=== PATIENT | female | born 1995 | race Caucasian/White ===

== ENCOUNTER 2016-10-27 07:51 | Emergency (ER) | payer OTHER ==
[~2016-10-27 07:51] MED LIST: PRED20TA PO
[2016-10-27 08:24] VITALS: BP 126/75
--- NOTE | 2016-10-27 09:01 | ED.ADGEN ---
Past History Past Medical History: No Pertinent History Past Surgical History: No Surgical History Alcohol Use: None Drug Use: None Adult General Chief Complaint Chief Complaint Facial rash HPI HPI Patient is a 21 year old female who presents with facial rash. Patient states she was on the son yesterday and applied a new sunscreen she had not used before. After this she developed painful rash on her face. She attempted Benadryl without relief. She denies that it's pruritic. She states she's had similar breakouts in the past with using different skin products. She's never been seen by a key account manager or had any skin testing done. She denies any fevers , no known sick contacts, no other illness reported. She reports "I have very sensitive skin" Review of Systems Review of Systems Constitutional: Denies fever or chills [] Eyes: Denies change in visual acuity, redness, or eye pain [] HENT: Denies nasal congestion or sore throat [] Respiratory: Denies cough or shortness of breath [] Cardiovascular: Denies chest pain GI: Denies abdominal pain, nausea, vomiting, bloody stools or diarrhea [] : Denies dysuria or hematuria [] Musculoskeletal: Denies back pain or joint pain [] Integument: Per history of present illness Neurologic: Denies headache, focal weakness or sensory changes [] Allergies Allergies Allergies Coded Allergies Type Severity Reaction Last Updated Verified No Known Drug Allergies 09/04/16 No Physical Exam Physical Exam Constitutional: Well developed, well nourished, no acute distress, non-toxic appearance. [] HENT: Normocephalic, atraumatic, bilateral external ears normal, oropharynx moist, no oral exudates, nose normal. [] Eyes: PERRLA,conjunctiva normal, no discharge. [] Neck: Normal range of motion Cardiovascular:Heart rate regular Lungs & Thorax: No respiratory distress Skin: On patient's face she has macular papular singular lesions, compliant and singular lesions, circular lesions, skin is intact Neurologic: Alert and oriented X 3, normal motor function, normal sensory function, no focal deficits noted. [] EKG EKG [] Radiology/Procedures Radiology/Procedures [] Course & Med Decision Making Course & Med Decision Making Pertinent Labs and Imaging studies reviewed. (See chart for details) [] Patient has a contact dermatitis versus sun reaction. I counseled patient on attempting 1% hydrocortisone cream and Benadryl, avoiding new lotions or soaps. Follow-up with key account manager, given Dr. Yoo's number. Final Impression Final Impression contact dermatitis vs sun reaction[] Problems: Dragon Disclaimer Dragon Disclaimer This electronic medical record was generated, in whole or in part, using a voice recognition dictation system. BENNIE SAHU MD Oct 27, 2016 09:01
== END 2016-10-27 08:24 | disposition home or self-care (01) ==
LOC: ER 07:54
DX: R21 Rash and other nonspecific skin eruption (principal)
CPT/HCPCS: 99282

== ENCOUNTER 2017-01-05 17:35 | Emergency (ER) | payer OTHER ==
[2017-01-05] MEDS ORDERED: IV NORMAL SALINE 1,000ML 1,000 ML IV SCH (18:06)
[2017-01-05] MEDS ORDERED: fentaNYL PF 100 MCG/2 ML VIAL IV PRN (18:15)
[2017-01-05] MEDS ORDERED: KETOROLAC 30 MG/ML VIAL. IV ONE (18:15)
[2017-01-05] MEDS ORDERED: ONDANSETRON PF 4 MG/2 ML VIAL. IV ONE (18:30)
--- NOTE | 2017-01-05 18:51 | ED.ADGEN ---
Past History Past Medical History: No Pertinent History Past Surgical History: Other Alcohol Use: None Drug Use: None Adult General HPI HPI Patient is a 21-year-old woman, with no significant past no history, who presents to the emergency department with a complaint of dysuria, frequency and urgency that began yesterday. Patient states she initially began experiencing pain with urination, and some burning, states that she is experiencing cramping the suprapubic region. Denies fevers or chills, some nausea, no vomiting, no swelling extremities, rashes, no weakness, numbness, tingling. States she is ending her back bladder incompletely. Denies any injuries, denies any discharge or drainage from the vagina, any concerns for STI exposures. No dyspareunia. Patient states that she had a UTI but a year ago and symptoms were similar at that time. Takes oral control pills, no other medications. Review of Systems Review of Systems Constitutional: Denies fever or chills [] Eyes: Denies change in visual acuity, redness, or eye pain [] HENT: Denies nasal congestion or sore throat [] Respiratory: Denies cough or shortness of breath [] Cardiovascular: No additional information not addressed in HPI [] GI: Denies abdominal pain, nausea, vomiting, bloody stools or diarrhea [] : Dysuria hematuria frequency urgency today. Musculoskeletal: I'll cramping low back pain, no joint pain. Integument: Denies rash or skin lesions [] Neurologic: Denies headache, focal weakness or sensory changes [] Endocrine: Denies polyuria or polydipsia [] Current Medications Current Medications Current Medications Medications (Trade) Dose Ordered Sig/Steven Start Time Stop Time Status Last Admin Dose Admin Cephalexin HCl (Keflex) 500 mg 1X ONCE 01/05/17 19:30 01/05/17 19:37 DC 01/05/17 19:30 500 MG Fentanyl Citrate (Fentanyl 2ml Vial) 50 mcg PRN Q15MIN PRN 01/05/17 18:15 01/05/17 18:35 DC Ketorolac Tromethamine (Toradol) 10 mg 1X ONCE 01/05/17 18:15 01/05/17 18:35 DC Naproxen (Naprosyn) 500 mg 1X ONCE 01/05/17 19:30 01/05/17 19:37 DC 01/05/17 19:30 500 MG Ondansetron HCl (Zofran) 4 mg 1X ONCE 01/05/17 18:30 01/05/17 18:35 DC Phenazopyridine HCl (Pyridium) 200 mg 1X ONCE 01/05/17 19:15 01/05/17 19:16 DC 01/05/17 19:13 200 MG Sodium Chloride 1,000 ml @ 1,000 mls/hr Q1H 01/05/17 18:06 01/05/17 18:35 DC Allergies Allergies Allergies Coded Allergies Type Severity Reaction Last Updated Verified No Known Drug Allergies 09/04/16 No Physical Exam Physical Exam Constitutional: Well developed, well nourished, no acute distress, non-toxic appearance. [] HENT: Normocephalic, atraumatic, bilateral external ears normal, oropharynx moist, no oral exudates, nose normal. [] Eyes: PERRLA, EOMI, conjunctiva normal, no discharge. [] Neck: Normal range of motion, no tenderness, supple, no stridor. [] Cardiovascular:Heart rate regular rhythm, no murmur, S1, S2, rubs or gallops. [] Lungs & Thorax: Bilateral breath sounds clear to auscultation, no wheezing, rhonchi, rales. No chest or crepitus or tenderness. [] Abdomen: Bowel sounds normal, soft, mild tenderness palpation in the suprapubic region, no rebound, rigidity, no guarding, no masses, no pulsatile masses. [] Skin: Warm, dry, no erythema, no rash. [] Back: No tenderness, no CVA tenderness. [] Extremities: No tenderness, no cyanosis, no clubbing, ROM intact, no edema. [] Neurologic: Alert and oriented X 3, normal motor function, normal sensory function, no focal deficits noted. [] Psychologic: Affect normal, judgement normal, mood normal. [] Current Patient Data Vital Signs Vital Signs Date Time Temp Pulse Resp B/P (MAP) Pulse Ox O2 Delivery O2 Flow Rate FiO2 01/05/17 19:31 68 16 105/80 (88) 100 Room Air 01/05/17 17:35 98.1 Lab Results Laboratory Tests Test 01/05/17 18:32 Urine Collection Type Unknown Urine Color Yellow Urine Clarity Cloudy Urine pH 7.0 Urine Specific Griffin 1.020 Urine Protein 30 mg/dl (NEG-TRACE) Urine Glucose (UA) Neg mg/dL (NEG) Urine Ketones (Stick) Neg mg/dL (NEG) Urine Blood Small (NEG) Urine Nitrite Neg (NEG) Urine Bilirubin Neg (NEG) Urine Urobilinogen Dipstick 0.2 mg/dL (0.2 mg/dL) Urine Leukocyte Esterase Small (NEG) Urine RBC 3-5 /HPF (0-2) Urine WBC >40 /HPF (0-4) Urine Squamous Epithelial Cells Mod /LPF Urine Bacteria Few /HPF (0-FEW) Urine Mucus Marked /LPF Urine Test Negative (NEG) EKG EKG Not indicated. [] Radiology/Procedures Radiology/Procedures Not indicated. [] Course & Med Decision Making Course & Med Decision Making Pertinent Labs and Imaging studies reviewed. (See chart for details) [] Patient declines indications for pelvic examination. Vital signs within normal limits, tolerating by mouth fluids without issue. She states she did take some Azo at home which helped with the burning, but still is having pain. Has not taken any antipyretics or pain medication prior to arrival in the emergency department. Examination is consistent with a urinary tract infection, no medications of pyelonephritis or other concerning findings based on examination. Urinalysis is positive for greater in 40 WBCs, some RBCs, and bacteria. Nitrate negative. Based on patient's examination, and report, we'll treat for a urinary tract infection, patient given Keflex, Pyridium, naproxen, which she tolerated without issue. We discussed concerning symptoms that prompt return to the emergency department, patient tolerated oral medications without issue in the ED. Patient states that she'll return to the ED for concerning symptoms as discussed, will follow-up with her primary care provider for test of cure in one week. Discharged home in stable condition with instructions and precautions as stated. Final Impression Final Impression [] Problems: Dragon Disclaimer Dragon Disclaimer This electronic medical record was generated, in whole or in part, using a voice recognition dictation system. Departure: Impression: Primary Impression: Urinary tract infection Disposition: HOME, SELF-CARE Condition: IMPROVED Scripts Naproxen (NAPROXEN) 250 Mg Tablet 250 MG PO PRN BID Y for BLADDER SPASM, #10 TAB Prov: FERNY STAFFORD DO 01/05/17 Phenazopyridine Hcl (PYRIDIUM) 200 Mg Tablet 200 MG PO PRN TID Y for BLADDER SPASM, #12 TAB Prov: FERNY STAFFORD DO 01/05/17 Cephalexin (KEFLEX) 500 Mg Capsule 1 CAP PO BID, #14 CAP Prov: FERNY STAFFORD DO 01/05/17 FERNY STAFFORD DO January 05, 2017 18:51
[2017-01-05 19:13] LABS: BILIRUBIN,URINE NEG (NEG); CLARITY,URINE CLOUDY; COLOR,URINE YELLOW; GLUCOSE,URINE NEG (NEG); NITRITE,URINE NEG (NEG); UROBILINOGEN,URINE 0.2 mg/dL (0.2 mg/dL)
[2017-01-05 19:14] LABS: BACTERIA,URINE FEW /HPF (0-FEW); SQUAMOUS EPITHELIAL CELL,UR MOD /LPF; WBC,URINE >40 /HPF (0-4)
[2017-01-05] MEDS ORDERED: PHENAZOPYRIDINE 200 MG TABLET. PO ONE (19:15)
[2017-01-05 19:16] LABS: U PREG PATIENT NEGATIVE (NEG)
[2017-01-05] MEDS ORDERED: NAPROXEN 500 MG TABLET PO ONE (19:30)
[2017-01-05] MEDS ORDERED: CEPHALEXIN 500 MG CAPSULE PO ONE (19:30)
[2017-01-05 19:31] VITALS: BP 105/80
[2017-01-05] MEDS ORDERED: PHEN-318 PO (19:34)
[2017-01-05] MEDS ORDERED: NAPR250T2 PO (19:34)
[2017-01-05] MEDS ORDERED: CEPH-264 PO (19:34)
== END 2017-01-05 19:33 | disposition home or self-care (01) ==
LOC: ER 17:35
DX: N39.0 Urinary tract infection, site not specified (principal); M54.5 Low back pain
CPT/HCPCS: 81001; 81025; 99284

== ENCOUNTER 2017-03-08 15:31 | Emergency (ER) | payer OTHER ==
[~2017-03-08 15:31] MED LIST changes: +CEPH-264 PO; +NAPR250T2 PO; +PHEN-318 PO
[2017-03-08] MEDS: LIDO:MAALOX 1:1 20 ML SINGLE DOSE PO ONE (16:10)
[2017-03-08 16:38] LABS: MONONUCLEOSIS PATIENT NEGATIVE (NEGATIVE)
[2017-03-08 16:40] VITALS: BP 132/80
[2017-03-08] MEDS ORDERED: SULF1TAB24 PO (16:43)
--- NOTE | 2017-03-08 16:45 | PHYS DOC ---
General Chief Complaint: SORE THROAT Stated Complaint: SORE THROAT Time Seen by MD: 15:33 Source: patient Exam Limitations: no limitations Problems: History of Present Illness Initial Comments Patient is sore throat. Patient states that for the past 3 days she worsens. Sore throat associated beer and limits her to fluid intake only today. She's had chills and sweats with some body aches. Gotu-qsn-qecyniw medications are not helping, patient is normally healthy she denies any difficulty swallowing and no shortness of breath or dyspnea on exertion. Patient has history of mono and strep in the past. Timing/Duration: other Severity: severe Location: throat Prearrival Treatment: over the counter meds Modifying Factors: worse with coughing Associated Symptoms: fever, malaise, poor solids intake, sore throat Allergies: Coded Allergies: No Known Drug Allergies (Unverified , 09/04/16) Past Medical History Medical History: no pertinent history Surgical History: noncontributory Social History Smoker: non-smoker Alcohol: none Drugs: none Constitutional: see HPI Ears: denies dizziness, denies pain Nose: denies congestion, denies epistaxis Throat: see HPI, denies neck stiffness, denies difficulty with fluids Respiratory: denies cough, denies shortness of breath Cardiovascular: denies chest pain, denies palpitations Gastrointestinal: denies nausea, denies vomiting Musculoskeletal: denies joint swelling, denies neck pain Physical Exam General Appearance: WD/WN, no apparent distress Eyes: bilateral eye normal inspection, bilateral eye PERRL, bilateral eye EOMI Nose: normal inspection Mouth/Throat: other (pharynx is beefy red with exudate airway is patent) Neck: trachea midline (tender reactive lymphadenopathy bilaterally) Cardiovascular/Respiratory: normal peripheral pulses, normal breath sounds 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 Departure Time of Disposition: 16:44 Disposition: 01 HOME, SELF-CARE Diagnosis: pharyngitis Condition: GOOD Patient Instructions: Viral and Bacterial Pharyngitis Additional Instructions: Aggressive hydration with Gatorade or water. Lief-dzf-ziyeysn Tylenol, ibuprofen, and analgesic throat sprays as needed. Prescription: Bactrim DS take with food as directed. Follow-up with your doctor in 7-10 days for recheck and throat culture results. Return to the ED with new or changing symptoms. AUSTIN PETERSON DO Mar 08, 2017 16:45
== END 2017-03-08 16:50 | disposition home or self-care (01) ==
LOC: ER 15:31
DX: J02.9 Acute pharyngitis, unspecified (principal); M79.1 Myalgia
CPT/HCPCS: 86308; 87070; 87880; 99284

== ENCOUNTER 2017-06-17 18:37 | Emergency (ER) | payer OTHER ==
[~2017-06-17] VITALS: Ht 167.6 cm; Wt 63.6 kg
[~2017-06-17 18:37] MED LIST changes: -NAPR250T2 PO; +NAPR250T6 PO; +SULF1TAB24 PO
[2017-06-17 18:49] VITALS: BP 132/84
[2017-06-17] MEDS ORDERED: 0.9 % SODIUM CHLORIDE 10 ML DISP.SYRIN. IV PRN (19:15)
[2017-06-17] MEDS ORDERED: IV NORMAL SALINE 1,000ML 500 ML IV ONE (19:30)
[2017-06-17 20:00] LABS: BASO # 0.1 x10^3/uL (0.0-0.2); BASO % 1 % (0-3); EOS # 0.2 x10^3/uL (0.0-0.7); EOS % 2 % (0-3); HEMATOCRIT 37.1 % (36.0-47.0); HEMOGLOBIN 12.7 g/dL (12.0-15.5); LYMPH # 3.9 x10^3/uL (1.0-4.8); LYMPH % 51 % (24-48); MEAN CORPUSCULAR HEMOGLOBIN 29 pg (25-35); MEAN CORPUSCULAR HGB CONC 34 g/dL (31-37); MEAN CORPUSCULAR VOLUME 84 fL (79-100); MONO # 0.6 x10^3/uL (0.0-1.1); MONO % 7 % (0-9); NEUT % 39 % (31-73); PLATELET COUNT 292 x10^3/uL (140-400); RED CELL DISTRIBUTION WIDTH 12.6 % (11.5-14.5); WHITE BLOOD COUNT 7.8 x10^3/uL (4.0-11.0)
[2017-06-17 20:05] LABS: CALCIUM 8.7 mg/dL (8.5-10.1); CREATININE 0.7 mg/dL (0.6-1.0); GFR 103.7; POTASSIUM 3.9 mmol/L (3.5-5.1)
[2017-06-17 20:10] LABS: PREG TEST PT QUAL NEGATIVE (NEG)
--- NOTE | 2017-06-17 20:40 | PHYS DOC ---
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 It all culminated today while on duty as standing position patient felt lightheaded and dizzy as she if she were going to pass out. She sat down quickly and she felt markedly better. Because the symptoms are becoming increasingly frequent she wanted to be seen here in the emergency pertinent. At this point she has no complaints or concerns other than the dizziness occurs when she stands quickly and near passing out with fatigue. She denies any fevers, chills, nausea, vomiting, diarrhea, headache, focal neurologic deficits, change in vision, change in speech, weakness in her upper or lower arms, denies any trauma to her head, she has been dressed at work. She denies any travel outside the country recent antibiotics or sick contacts. Symptoms are usually worse with going from a sitting to standing position quickly and are better with taking a recumbent position. Review of Systems Review of Systems Constitutional: Denies fever or chills she is complaining of fatigue Eyes: Denies change in visual acuity, redness, or eye pain [] HENT: Denies nasal congestion or sore throat [] Respiratory: Denies cough or shortness of breath [] Cardiovascular: No additional information not addressed in HPI [] GI: Denies abdominal pain, nausea, vomiting, bloody stools or diarrhea [] : Denies dysuria or hematuria [] Musculoskeletal: Denies back pain or joint pain [] Integument: Denies rash or skin lesions [] Neurologic: Denies headache, focal weakness or sensory changes does complain of primary dizziness when standing for prolonged period of time or going from a sitting or laying position to a standing position quickly. Endocrine: Denies polyuria or polydipsia [] All other systems were reviewed and found to be within normal limits, except as documented in this note. Current Medications Current Medications Current Medications Medications (Trade) Dose Ordered Sig/Steven Start Time Stop Time Status Last Admin Dose Admin Sodium Chloride 500 ml @ 500 mls/hr Q1H ONCE 06/17/17 19:30 06/17/17 20:29 Sodium Chloride (Normal Saline Flush) 10 ml QSHIFT PRN 06/17/17 19:15 Allergies Allergies Allergies Coded Allergies Type Severity Reaction Last Updated Verified No Known Drug Allergies 09/04/16 No Physical Exam Physical Exam Vital signs on arrival within normal limits. Constitutional: Well developed, well nourished, no acute distress, non-toxic appearance. [] HENT: Normocephalic, atraumatic, bilateral external ears normal, oropharynx moist, no oral exudates, nose normal. [] Eyes: PERRLA, EOMI, conjunctiva normal, no discharge. [] Neck: Normal range of motion, no tenderness, supple, no stridor. [] Cardiovascular:Heart rate regular rhythm, no murmur [] Lungs & Thorax: Bilateral breath sounds clear to auscultation [] Abdomen: Bowel sounds normal, soft, no tenderness, no masses, no pulsatile masses. [] Skin: Warm, dry, no erythema, no rash. [] Back: No tenderness, no CVA tenderness. [] Extremities: No tenderness, no cyanosis, no clubbing, ROM intact, no edema. [] Neurologic: Alert and oriented X 3, normal motor function, normal sensory function, no focal deficits noted. [] Psychologic: Affect normal, judgement normal, mood normal. [] Current Patient Data Vital Signs Vital Signs Date Time Temp Pulse Resp B/P (MAP) Pulse Ox O2 Delivery O2 Flow Rate FiO2 06/17/17 18:49 98.0 20 99 Room Air Lab Results Laboratory Tests Test 06/17/17 19:35 White Blood Count 7.8 x10^3/uL (4.0-11.0) Red Blood Count 4.40 x10^6/uL (3.50-5.40) Hemoglobin 12.7 g/dL (12.0-15.5) Hematocrit 37.1 % (36.0-47.0) Mean Corpuscular Volume 84 fL (79-100) Mean Corpuscular Hemoglobin 29 pg (25-35) Mean Corpuscular Hemoglobin Concent 34 g/dL (31-37) Red Cell Distribution Width 12.6 % (11.5-14.5) Platelet Count 292 x10^3/uL (140-400) Neutrophils (%) (Auto) 39 % (31-73) Lymphocytes (%) (Auto) 51 % (24-48) H Monocytes (%) (Auto) 7 % (0-9) Eosinophils (%) (Auto) 2 % (0-3) Basophils (%) (Auto) 1 % (0-3) Neutrophils # (Auto) 3.0 x10^3uL (1.8-7.7) Lymphocytes # (Auto) 3.9 x10^3/uL (1.0-4.8) Monocytes # (Auto) 0.6 x10^3/uL (0.0-1.1) Eosinophils # (Auto) 0.2 x10^3/uL (0.0-0.7) Basophils # (Auto) 0.1 x10^3/uL (0.0-0.2) Sodium Level 139 mmol/L (136-145) Potassium Level 3.9 mmol/L (3.5-5.1) Chloride Level 104 mmol/L (98-107) Carbon Dioxide Level 26 mmol/L (21-32) Anion Gap 9 (6-14) Blood Urea Nitrogen 12 mg/dL (7-20) Creatinine 0.7 mg/dL (0.6-1.0) Estimated GFR (Cockcroft-Gault) 103.7 Glucose Level 106 mg/dL (70-99) H Calcium Level 8.7 mg/dL (8.5-10.1) Serum Test, Qualitative Negative (NEG) EKG EKG [] Radiology/Procedures Radiology/Procedures [] Course & Med Decision Making Course & Med Decision Making Pertinent Labs and Imaging studies reviewed. (See chart for details) []EKG timed 7:18 PM read by me at 06/17/2017 demonstrates a ventricular rate of 58 there is a pediatric QRS normal sinus rhythm with CO interval 206 which is a first-degree AV block. As a QRS width of 88 which is normal, QTC of 402 which is normal. Patientno ST segment or T-wave changes consistent with acute ischemia , there is no evidence of Dsgws-Otdfcjegq-Dfamm or Brugada syndrome or prolonged QT. She presents with near syncope My syncope differential includes but not limited to: Neurally mediated vasovagal syncope, situational syncope, cardiac sinus syncope , orthostatic hypertension, medications, psychiatric interventions, neurologic syncope, cardiogenic syncopal B, to include organic heart disease congestive heart failure, cardiac dysrhythmia, seizure disorder, stroke or transient ischemic attack, bradycardia dysrhythmias, tachycardia dysrhythmias, PT, V. fib V. fib, cardiac abnormalities like first degree secondary third-degree AV blocks , prolonged QT, hypertrophic Justice myopathy, severe pulmonic stenosis, pulmonary arterial hypertension, atrial myxomas, aortic stenosis, valvular failure, alcohol consumption, adrenal insufficiency, drug effects from things like antidepressants, antihypertensive agents like beta blockers, vasodilators including calcium channel blockers and nitrates, autonomic insufficiency. She does not exhibit any these signs or symptoms today infectious symptom free at this time I encouraged her to follow-up with her primary care doctor to have a Holter monitor placed and continued evaluation of her thyroid. Because of her family history of hypothyroidism I will believe that she would benefit from endocrinology evaluation as well. Patient is finding well suited to follow-up with her primary care doctor. discharge: I've spoken with the patient and/or caregivers. I've explained the patient's condition, diagnosis and treatment plan based on information available to me at this time. I've answered the patient's and/or caregivers questions and addressed any concerns. The patient and/or caregivers have a good understanding the patient's diagnosis, condition and treatment plan as can be expected at this point. Vital signs have been stabilized. The patient's condition is stable for discharge from the emergency department. The patient will pursue further outpatient evaluation with her primary care provider or other designated consulting physician as outlined in the discharge instructions. Patient and/or caregivers are agreeable to this plan of care and follow-up instructions have been explained in detail. The patient and/or caregivers have received these instructions in written format and expressed understanding of these discharge instructions. The patient and her caregivers are aware that if any significant change in condition or worsening of symptoms should prompt him to immediately return to this of the closest emergency department. If an emergent department is not readily available I would encourage him to call 911. Dae Disclaimer Dragon Disclaimer This electronic medical record was generated, in whole or in part, using a voice recognition dictation system. Departure Departure: Impression: Primary Impression: Fatigue Additional Impression: Near syncope Disposition: HOME, SELF-CARE Condition: IMPROVED Referrals: ANGELA LEES DO, [facility] (PCP) Patient Instructions: Fatigue, Near-Syncope Additional Instructions: discharge: I've spoken with the patient and/or caregivers. I've explained the patient's condition, diagnosis and treatment plan based on information available to me at this time. I've answered the patient's and/or caregivers questions and addressed any concerns. The patient and/or caregivers have a good understanding the patient's diagnosis, condition and treatment plan as can be expected at this point. Vital signs have been stabilized. The patient's condition is stable for discharge from the emergency department. The patient will pursue further outpatient evaluation with her primary care provider or other designated consulting physician as outlined in the discharge instructions. Patient and/or caregivers are agreeable to this plan of care and follow-up instructions have been explained in detail. The patient and/or caregivers have received these instructions in written format and expressed understanding of these discharge instructions. The patient and her caregivers are aware that if any significant change in condition or worsening of symptoms should prompt him to immediately return to this of the closest emergency department. If an emergent department is not readily available I would encourage him to call 911. Problem Qualifiers DARRELL FERRO MD Jun 17, 2017 20:40
--- NOTE | 2017-06-17 21:05 | EKG ---
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
--- NOTE | 2017-06-18 07:52 | RAD ---
EXAM: Chest, 2 views. HISTORY: Fatigue. COMPARISON: None. FINDINGS: Frontal and lateral views of the chest are obtained. There is no infiltrate, effusion or pneumothorax. The heart is normal in size. IMPRESSION: No acute pulmonary finding.
[2017-06-18 10:13] LABS: FREE T4 0.83 ng/dL (0.76-1.46); THYROID STIM HORMONE (TSH) 2.135 uIU/mL (0.358-3.740)
== END 2017-06-17 20:43 | disposition home or self-care (01) ==
LOC: ER 18:37
DX: R55 Syncope and collapse (principal); R53.83 Other fatigue
CPT/HCPCS: 36415; 71020; 80048; 84439; 84443; 84481; 84703; 85025; 93005; 99285-25

== ENCOUNTER 2017-11-14 21:08 | Emergency (ER) | payer OTHER ==
[~2017-11-14] VITALS: Ht 167.6 cm; Wt 63.6 kg
[2017-11-14] MEDS ORDERED: FAMOTIDINE 20 MG TABLET PO ONE (21:45)
[2017-11-14] MEDS: predniSONE 20 MG TABLET PO ONE ×2 (21:45→21:54)
[2017-11-14] MEDS ORDERED: diphenhydrAMINE HCL 25 MG CAPSULE PO ONE (21:45)
--- NOTE | 2017-11-14 23:02 | ED.ADGEN ---
Past History Past Medical History: No Pertinent History Past Surgical History: No Surgical History Smoking: Non-smoker Alcohol Use: None Drug Use: None Adult General Chief Complaint Chief Complaint Chest tightness, shortness of air HPI HPI Patient is a 22-year-old female who presents with chest tightness and shortness of air after starting new antibiotics for treatment of urinary tract infection. Patient had 1 dose of Macrobid approximately 2030 minutes prior to onset of symptoms during medication or therapy taken prior to ED arrival. No oral pharyngeal swelling, no hoarseness, drooling, wheezes. Patient is not tachypneic or hypoxic. No urticaria or purities. No other symptoms or complaints. No prior allergic reactions. Denies other symptoms or complaints. Patient arrives by private vehicle. [] Review of Systems Review of Systems ROS as per HPI. No other review symptoms are negative. All other systems were reviewed and found to be within normal limits, except as documented in this note. Current Medications Current Medications Current Medications Medications (Trade) Dose Ordered Sig/Steven Start Time Stop Time Status Last Admin Dose Admin Diphenhydramine HCl (Benadryl) 25 mg 1X ONCE 11/14/17 21:45 11/14/17 21:46 DC 11/14/17 21:54 25 MG Famotidine (Pepcid) 20 mg 1X ONCE 11/14/17 21:45 11/14/17 21:46 DC 11/14/17 21:54 20 MG Prednisone (Prednisone) 60 mg 1X ONCE 11/14/17 21:45 11/14/17 21:46 DC 11/14/17 21:54 60 MG Allergies Allergies Allergies Coded Allergies Type Severity Reaction Last Updated Verified No Known Drug Allergies 09/04/16 No Physical Exam Physical Exam Constitutional: Well developed, well nourished, no acute distress, non-toxic appearance. [] HENT: Normocephalic, atraumatic, bilateral external ears normal, oropharynx moist, no oral swelling, nose normal. [] Eyes: PERRLA, EOMI, conjunctiva normal. [] Neck: Normal range of motion. [] Cardiovascular:Heart rate regular rhythm. [] Lungs & Thorax: Bilateral breath sounds clear to auscultation. [] Abdomen: Bowel sounds normal, soft, no tenderness. [] Skin: Warm, dry. [] Back: No tenderness. [] Extremities: No tenderness. [] Neurologic: Alert and oriented X 3, normal motor function, normal sensory function, no focal deficits noted. [] Psychologic: Affect, anxious. [] EKG EKG [] Radiology/Procedures Radiology/Procedures [] Course & Med Decision Making Course & Med Decision Making Pertinent Labs and Imaging studies reviewed. (See chart for details) [Pepcid and Benadryl given with symptomatic improvement. Patient reevaluated states she feels much better. Of note, patient did decline prednisone due prior side effects and concerns for palpitations and reflux disease. The patient risks and benefits of steroids in setting of acute allergic reaction. Patient voices understanding but declines prednisone prescription. I will prescribe the patient an EpiPen Rx, continue supportive care, discontinue activated and substitute Keflex. Close PCP follow-up recommended. Return precautions reviewed. Patient verbalizes understanding agreement discharge instructions prior to departure. Final Impression Final Impression [1. Allergic reaction] Problems: Dragon Disclaimer Dragon Disclaimer This electronic medical record was generated, in whole or in part, using a voice recognition dictation system. STEPHAN GUERRERO DO Nov 14, 2017 23:02
[2017-11-14 23:05] VITALS: BP 124/75
== END 2017-11-14 23:10 | disposition home or self-care (01) ==
LOC: ER 21:08
DX: T78.49XA Other allergy, initial encounter (principal); X58.XXXA Exposure to other specified factors, initial encounter
CPT/HCPCS: 99283; Q0163; J7512

== ENCOUNTER 2018-02-01 15:24 | Emergency (ER) | payer OTHER ==
[~2018-02-01] VITALS: Ht 167.6 cm; Wt 65.8 kg
[2018-02-01] MEDS ORDERED: SULF1TAB24 PO (16:16)
[2018-02-01] MEDS ORDERED: PHEN100T82 PO (16:16)
[2018-02-01] MEDS ORDERED: NAPR-683 PO (16:16)
--- NOTE | 2018-02-01 16:16 | PHYS DOC ---
Past History Past Medical History: No Pertinent History, UTI Past Surgical History: No Surgical History Smoking: Non-smoker Alcohol Use: None Drug Use: None Adult General Chief Complaint Chief Complaint: URINARY FREQUENCY HPI HPI 22-year-old female patient complaining of urinary frequency and dysuria for the last couple of hours and nausea since yesterday without fever and chills, vomiting, diarrhea and constipation, vaginal bleeding or discharge. Patient states she one year ago and since then had several episodes of UTI and usually responded well to Bactrim. Review of Systems Review of Systems Constitutional: Denies fever or chills [] Eyes: Denies change in visual acuity, redness, or eye pain [] HENT: Denies nasal congestion or sore throat [] Respiratory: Denies cough or shortness of breath [] Cardiovascular: No additional information not addressed in HPI [] GI: Denies abdominal pain, nausea, vomiting, bloody stools or diarrhea [] : Reports dysuria and frequency Musculoskeletal: Denies back pain or joint pain [] Integument: Denies rash or skin lesions [] Neurologic: Denies headache, focal weakness or sensory changes [] Endocrine: Denies polyuria or polydipsia [] All other systems were reviewed and found to be within normal limits, except as documented in this note. Allergies Allergies Allergies Coded Allergies Type Severity Reaction Last Updated Verified nitrofurantoin Allergy Mild 11/15/17 Yes Uncoded Allergies Type Severity Reaction Last Updated Verified SUN SCREEN Allergy Unknown 11/15/17 Physical Exam Physical Exam Constitutional: Well developed, well nourished, mild distress, non-toxic appearance. [] HENT: Normocephalic, atraumatic Eyes: PERRLA, EOMI, conjunctiva normal, no discharge. [] Neck: Normal range of motion, no tenderness, supple, no stridor. [] Cardiovascular:Heart rate regular rhythm, no murmur [] Lungs & Thorax: Bilateral breath sounds clear to auscultation [] Abdomen: Bowel sounds normal, soft, no tenderness, no masses, no pulsatile masses. [] Skin: Warm, dry, no erythema, no rash. [] Back: No tenderness, no CVA tenderness. [] Extremities: No tenderness, no cyanosis, no clubbing, ROM intact, no edema. [] Neurologic: Alert and oriented X 3, normal motor function, normal sensory function, no focal deficits noted. [] Psychologic: Affect normal, judgement normal, mood normal. [] Current Patient Data Vital Signs Vital Signs Date Time Temp Pulse Resp B/P (MAP) Pulse Ox O2 Delivery O2 Flow Rate FiO2 02/01/18 15:25 98.8 73 20 99 Room Air Lab Results Laboratory Tests Test 02/01/18 15:04 POC Urine HCG, Qualitative hcg negative (Negative) EKG EKG [] Radiology/Procedures Radiology/Procedures [] Course & Med Decision Making Course & Med Decision Making Pertinent Labs reviewed. (See chart for details) Evaluation of patient in ER showed 22-year-old female patient with complaining of urinary frequency and dysuria for the last 2 hours and history of frequent UTI. Patient had unremarkable physical exam. UA showed positive nitrates and large leukocyte. She did not want injection of antibiotic in ER. Plan discharge patient home with diagnosis of UTI and instruction to follow up with primary care physician for evaluation of frequent UTI. [] Dragon Disclaimer Dragon Disclaimer This electronic medical record was generated, in whole or in part, using a voice recognition dictation system. Departure Departure: Impression: Primary Impression: Urinary tract infection Disposition: HOME, SELF-CARE (At 1614) Condition: STABLE Referrals: ADRIANA LUIS DO (PCP) Patient Instructions: Urinary Tract Infection Additional Instructions: Drink plenty of liquids Follow-up with your primary care physician in 3-5 days Return to ER if not getting better Scripts Naproxen (NAPROSYN) 500 Mg Tablet 1 TAB PO BID, #14 TAB 1 Refill Prov: YOLIS DE JESUS MD 02/01/18 Phenazopyridine Hcl (PYRIDIUM) 100 Mg Tablet 100 MG PO BID, #10 TAB Prov: YOLIS DE JESUS MD 02/01/18 Sulfamethoxazole/Trimethoprim (BACTRIM DS TABLET) 1 Each Tablet 1 TAB PO BID, #14 TAB Prov: YLOIS DE JESUS MD 02/01/18 YOLIS DE JESUS MD Feb 01, 2018 16:16
[2018-02-01 16:20] VITALS: BP 128/72
[2018-02-01 16:44] LABS: CLARITY,URINE HAZY; COLOR,URINE ORANGE
[2018-02-01 16:48] LABS: BILIRUBIN,URINE NEG (NEG)
[2018-02-01 16:49] LABS: BACTERIA,URINE MOD /HPF (0-FEW); NITRITE,URINE POS (NEG); SQUAMOUS EPITHELIAL CELL,UR MOD /LPF; UROBILINOGEN,URINE 1 mg/dL (0.2 mg/dL)
[2018-02-01 16:57] LABS: GLUCOSE,URINE 100 mg/dL (NEG)
== END 2018-02-01 16:20 | disposition home or self-care (01) ==
LOC: ER 15:24
DX: N39.0 Urinary tract infection, site not specified (principal); Z87.440 Personal history of urinary (tract) infections; Z88.8 Allergy status to other drugs, medicaments and biological substances
CPT/HCPCS: 81001; 81025; 87086; 87186; 99284

== ENCOUNTER 2019-08-31 20:05 | Emergency (ER) | payer OTHER ==
[~2019-08-31] VITALS: Ht 167.6 cm; Wt 63.6 kg
[~2019-08-31 20:05] MED LIST changes: +NAPR-683 PO; +PHEN100T82 PO
[2019-08-31] MEDS ORDERED: allergy pill (20:22)
--- NOTE | 2019-08-31 20:54 | RAD ---
EXAM: PA and Lateral Views of the Chest DATE: 08/31/2019 8:38 PM INDICATION:1 week history of cough COMPARISON: No Prior FINDINGS: The heart is not enlarged. Mediastinal and hilar contours are normal. No focal parenchymal airspace opacity. No pleural effusion or pneumothorax. IMPRESSION: 1. No radiographic evidence for acute cardiopulmonary process. Electronically signed by: Jean Claude Meredith MD (08/31/2019 8:51 PM) [facility] [place]
[2019-08-31] MEDS ORDERED: ALBU2.5V8 IH (21:00)
[2019-08-31] MEDS ORDERED: PRED20TA PO (21:00)
[2019-08-31] MEDS ORDERED: predniSONE 20 MG TABLET PO ONE (21:00)
[2019-08-31] MEDS ORDERED: ALBUTEROL SULFATE 2.5 MG/3 ML NEBU. NEB ONE (21:00)
--- NOTE | 2019-08-31 21:00 | PHYS DOC ---
Past History Past Medical History: No Pertinent History, UTI Past Surgical History: Other Additional Past Surgical Histo: wisdom teeth Smoking: Non-smoker Alcohol Use: Occasionally Drug Use: None Adult General Chief Complaint Chief Complaint: DYSPNEA/RESPIRATOY DISTRESS HPI HPI Patient is a 24 year old female who presents with cough and sore throat. The patient states that her cough started one week ago. Has started to notice increasing chest tightness and wheezing over the past 3 days. States that she has had previous history of "walking pneumonia" 2 years ago and required use of antibiotics. Denies any history of asthma or chronic structural lung disease. States that she tried using albuterol from an old inhaler that she had from 2 years ago which added partial relief to chest tightness and congestion symptoms. States cough has been nonproductive. Has had no fever, chills, or myalgias. Patient states that her boyfriend started having sore throat symptoms 3 days ago, but just before she started to have more pronounced sore throat symptoms within the last 2 days. Review of Systems Review of Systems Constitutional: Denies fever or chills [] Eyes: Denies change in visual acuity, redness, or eye pain [] HENT: Sore throat, rhinorrhea[] Respiratory: Cough, wheezing, shortness of breath[] Cardiovascular: Denies chest pain or edema[] GI: Denies abdominal pain, nausea, vomiting, bloody stools or diarrhea [] : Denies dysuria or hematuria [] Musculoskeletal: Denies back pain or joint pain [] Integument: Denies rash or skin lesions [] Neurologic: Denies headache, focal weakness or sensory changes [] All other systems were reviewed and found to be within normal limits, except as documented in this note. Current Medications Current Medications Current Medications Medications (Trade) Dose Ordered Sig/Steven Start Time Stop Time Status Last Admin Dose Admin Albuterol Sulfate (Ventolin) 2.5 mg 1X ONCE 08/31/19 21:00 08/31/19 21:01 08/31/19 20:52 2.5 MG Prednisone (Prednisone) 60 mg 1X ONCE 08/31/19 21:00 08/31/19 21:01 Allergies Allergies Allergies Coded Allergies Type Severity Reaction Last Updated Verified nitrofurantoin Allergy Mild 08/31/19 Yes Uncoded Allergies Type Severity Reaction Last Updated Verified SUN SCREEN Allergy Unknown 11/15/17 Physical Exam Physical Exam Constitutional: Well developed, well nourished, no acute distress, non-toxic appearance. [] HENT: Normocephalic, atraumatic, bilateral external ears normal, oropharynx erythematous, no oral exudates, nose normal. [] Eyes: PERRLA, EOMI, conjunctiva normal, no discharge. [] Neck: Normal range of motion, no tenderness, supple, no stridor. [] Cardiovascular:Heart rate regular rhythm, no murmur [] Lungs & Thorax: Nonlabored respirations, no accessory muscle usage present, occasional rhonchi present on auscultation, no rales or wheezing[] Abdomen: Bowel sounds normal, soft, no tenderness, no masses, no pulsatile masses. [] Skin: Warm, dry, no erythema, no rash. [] Back: No tenderness, no CVA tenderness. [] Extremities: No tenderness, no cyanosis, no clubbing, ROM intact, no edema. [] Neurologic: Alert and oriented X 3, normal motor function, normal sensory function, no focal deficits noted. [] Current Patient Data Vital Signs Vital Signs Date Time Temp Pulse Resp B/P (MAP) Pulse Ox O2 Delivery O2 Flow Rate FiO2 08/31/19 20:10 98.5 68 20 128/72 (90) 100 Room Air Lab Results Laboratory Tests Test 08/31/19 20:26 Group A Streptococcus Rapid Negative Current Medications Medications (Trade) Dose Ordered Sig/Steven Route PRN Reason Start Time Stop Time Status Last Admin Dose Admin Albuterol Sulfate (Ventolin) 2.5 mg 1X ONCE NEB 08/31/19 21:00 08/31/19 21:01 DC 08/31/19 20:52 Prednisone (Prednisone) 60 mg 1X ONCE PO 08/31/19 21:00 08/31/19 21:01 DC EKG EKG Not performed[] Radiology/Procedures Radiology/Procedures [address] [address] IMAGING REPORT Signed PATIENT: STERLING MCKAY ACCOUNT: [id number] : 1995 LOCATION: ER AGE: 24 SEX: F EXAM STATUS: REG ER ORD. PHYSICIAN: ALISE SILVER MD REASON: cough for 1 week PROCEDURE: CHEST PA & LATERAL EXAM: PA and Lateral Views of the Chest DATE: 08/31/2019 8:38 PM INDICATION:1 week history of cough COMPARISON: No Prior FINDINGS: The heart is not enlarged. Mediastinal and hilar contours are normal. No focal parenchymal airspace opacity. No pleural effusion or pneumothorax. IMPRESSION: 1. No radiographic evidence for acute cardiopulmonary process. Electronically signed by: Jean Claude Meredith MD (08/31/2019 8:51 PM) [facility] [place] DICTATED AND SIGNED BY: JEAN CLAUDE MEREDITH MD DATE: 08/31/192050 CC: ALISE SILVER MD; PCP,NO ~ [] Course & Med Decision Making Course & Med Decision Making Pertinent Labs and Imaging studies reviewed. (See chart for details) Patient was given albuterol in the emergency department with improvement of symptoms. Patient's symptoms appear consistent with acute viral bronchitis. Patient was offered loading dose of prednisone. The patient states that she is unsure if she wants to take prednisone. I did speak with her regarding the intent of prednisone in controlling bronchitis symptoms through reduction of airway inflammation. Also noted that this would help reduce chances of developi ng secondary pneumonia due to mucous trapping from airway inflammation. She voices understanding of this as well as understanding that short-term use of prednisone will likely not result in complications of metabolic syndrome, bone density changes, or hormonal dysregulation. Explain that likely symptoms would include agitation, anxiety, GI upset, and temporary spike in blood sugar. She states that this time she does not want to take the oral dose of prednisone but is agreeable to receiving a prescription which she will decide if she would like to fill in the next 24 hours to start. Patient also given prescription for albuterol inhaler. Advised continue symptomatic treatment at this time and recommended follow-up with primary doctor in 5 days for reevaluation. Advised return to emergency department for any worsening symptoms. Patient was understanding and in agreement with treatment plan. Dragon Disclaimer Dragon Disclaimer This electronic medical record was generated, in whole or in part, using a voice recognition dictation system. Departure Departure: Impression: Primary Impression: Viral bronchitis Disposition: HOME, SELF-CARE Condition: IMPROVED Referrals: PCP,NO (PCP) Patient Instructions: Acute Bronchitis Additional Instructions: Follow-up with your primary doctor in the next 5 days for reevaluation if symptoms have not improved. Return to the emergency department for any worsening symptoms. Scripts Albuterol Sulfate (PROAIR HFA INHALER) 8.5 Gm Hfa.aer.ad 2 PUFF IH PRN Q4-6HRS PRN for wheezing for 21 Days, #1 INHALER 0 Refills Prov: ALISE SILVER MD 08/31/19 Prednisone (PREDNISONE) 20 Mg Tablet 60 MG PO DAILY for 5 Days, #15 TAB Prov: ALISE SILVER MD 08/31/19 ALISE SILVER MD Aug 31, 2019 21:00
[2019-08-31 21:04] VITALS: BP 150/58
== END 2019-08-31 21:07 | disposition home or self-care (01) ==
LOC: ER 20:05
DX: J20.8 Acute bronchitis due to other specified organisms (principal); R07.89 Other chest pain; J02.9 Acute pharyngitis, unspecified; Z87.440 Personal history of urinary (tract) infections
CPT/HCPCS: 71046; 87070; 87880; 94640; 99285; J7613